=== PATIENT | male | born 1970 | race Caucasian/White ===

== ENCOUNTER 2017-04-12 22:46 | Emergency (ER) | payer BC ==
[2017-04-12] MEDS ORDERED: PROPARACAINE 0.5% OPHTH DROPS 15 ML BTL RIGHT EYE STA (23:27)
[2017-04-12] MEDS ORDERED: BACITRACIN/POLYMYX 500-10,000 UNIT/GM OPHTH OINT 3.5 GM TUBE RIGHT EYE STA (23:44)
--- NOTE | 2017-04-12 23:44 | ED ---
Eye Problem HPI - General Chief complaint: Eye Problems Stated complaint: FB R eye Time Seen by Provider: 04/12/17 22:58 Source: patient Mode of arrival: ambulatory Limitations: no limitations - History of Present Illness Initial comments: Is a 46-year-old man who presents to be viral for what he believes is formed body in the eye. The patient states that he had been using a barbecue grill tonight and he heard a charcoal pop and then felt some burning discomfort in his right eye. He states that both he and his had attempted to irrigate this foreign body out but were not successful. Patient states that his vision appears okay and he has had a little bit of tearing and a little bit of discomfort. Patient denies any other symptoms he does believe that his last tetanus shot was within the past 10 years. chief complaint: eye pain -: hour(s) Onset Description: sudden Location: right eye Place: home If Injury: other Eye Symptoms: burning Severity: mild If Pain, Quality: burning Consistency: constant Associated Symptoms: none Treatments Prior to Arrival: none - Related Data Patient Tetanus UTD: Yes Allergies Allergy/AdvReac Type Severity Reaction Status Date / Time No Known Allergies Allergy Verified 04/12/17 22:56 Review of Systems ROS Statement: Those systems with pertinent positive or pertinent negative responses have been documented in the HPI. ROS Other: All systems not noted in ROS Statement are negative. Constitutional: Denies: fever Eyes: Reports: as per HPI, eye pain, eye discharge. Denies: vision change Neurological: Denies: headache Past Medical History Past Medical History: Hyperlipidemia History of Any Multi-Drug Resistant Organisms: None Reported Past Surgical History: No Surgical Hx Reported Past Psychological History: Depression Smoking Status: Never smoker Past Alcohol Use History: Occasional Past Drug Use History: None Reported General Exam Limitations: no limitations General appearance: alert, in no apparent distress Head exam: Present: atraumatic, normocephalic Eye exam: Present: PERRL, EOMI. Absent: scleral icterus, conjunctival injection , periorbital swelling, periorbital tenderness Pupils: Present: other (Patient has what appears to be a carbonaceous foreign body at about the 1:30 position of the right cornea.) Course Vital Signs 04/12/17 22:56 Temperature 98.1 F Pulse Rate 75 Respiratory 18 Rate Blood Pressure 122/76 O2 Sat by Pulse 94 L Oximetry Medical Decision Making - Medical Decision Making I instilled prep can drop. When there was adequate anesthesia. I perform slit lamp exam. Lids have a normal appearance. There is no conjunctival injection. Cornea is thin and clear. There is the corneal foreign body documented previously. Anterior chamber shows no cells or flare. Under slit lamp guidance a used a #18-gauge needle that I had bent into a scoop shape to remove the small carbonaceous foreign body. Patient tolerated this well without any complication. Exam following removal shows no rust ring. No remaining foreign body. Just appropriate further care and follow-up. Disposition Clinical Impression: Corneal foreign body Disposition: HOME SELF-CARE Condition: Good Instructions: Eye Foreign Body (ED) Referrals: Amberly Gamble MD [Primary Care Provider] - 1-2 days Kt Noguera MD [STAFF PHYSICIAN] - 1-2 days
[2017-04-12 23:57] VITALS: BP 122/73; PULSE 62; RESP 16; TEMP 98
== END 2017-04-13 00:07 | disposition home or self-care (01) ==
LOC: EC 22:46
DX: T15.01XA Foreign body in cornea, right eye, initial encounter (principal)
CPT/HCPCS: 65222; 99283

== ENCOUNTER → 2020-08-30 | Outpatient (CLI) | payer BC ==
[2020-08-30 21:19] LABS: African American GFR (CKD) 91.5 (60.0-200.0); Albumin 4.3 g/dL (3.80-4.90); Albumin/Globulin Ratio 1.95 (1.60-3.17); BUN/Creat Ratio 16.36 Ratio (12.00-20.00); Calcium 9.8 mg/dL (8.7-10.3); Chol/HDL Ratio 4.16; Globulin 2.2 g/dL (1.6-3.3); LDL Cholesterol,Calculated 66.2 mg/dL (0.0-131.0); Potassium 4.5 mmol/L (3.5-5.5); Total Bilirubin 0.6 mg/dL (0.2-1.2); Total Protein 6.5 g/dL (6.2-8.2); VLDL Calculation 31.8 mg/dL (5.00-40.00)
== END | disposition home or self-care (01) ==
LOC: LABWHC1 12:55
PROVIDERS: ATTEND Internal Medicine Interventional Cardiology
DX: E78.2 Mixed hyperlipidemia (principal)
CPT/HCPCS: 36415; 80053; 80061

== ENCOUNTER → 2020-09-25 | Outpatient (CLI) | payer BC ==
[2020-09-25 15:45] LABS: African American GFR (CKD) 81.8 (60.0-200.0); Anion Gap 8.2 mmol/L (4.00-12.00); Carbon Dioxide 26.8 mmol/L (21.6-31.8); Non-African American GFR(CKD) 70.6 (60.0-200.0); Potassium 4.5 mmol/L (3.5-5.5)
== END | disposition home or self-care (01) ==
LOC: LABWHC1 09:46
PROVIDERS: ATTEND Internal Medicine Interventional Cardiology
DX: I10 Essential (primary) hypertension (principal)
CPT/HCPCS: 36415; 80051; 82565; 84520

== ENCOUNTER → 2023-02-14 | Outpatient (CLI) | payer BC ==
[2023-02-14 19:25] LABS: ALT 32 U/L (10-49); AST 27 U/L (14-35); African American GFR (CKD) 89.6 (60.0-200.0); Albumin 4.7 g/dL (3.8-4.9); Albumin/Globulin Ratio 2.14 (1.60-3.17); Alkaline Phosphatase 58 U/L (41-126); BUN/Creat Ratio 16.55 Ratio (12.00-20.00); Blood Urea Nitrogen 18.2 mg/dL (9.0-27.0); Calcium 10.4 mg/dL (8.7-10.3); Carbon Dioxide 26.8 mmol/L (20.0-27.5); Chloride 104 mmol/L (96-109); Chol/HDL Ratio 6.03 Ratio; Globulin 2.2 g/dL (1.6-3.3); Glucose 105 mg/dL (70-110); LDL Cholesterol,Calculated 173.4 mg/dL (0.0-131.0); Magnesium 2.1 mg/dL (1.5-2.4); Non-African American GFR(CKD) 77.3 (60.0-200.0); Potassium 5.4 mmol/L (3.5-5.5); Sodium 142 mmol/L (135-145); Total Protein 6.9 g/dL (6.2-8.2)
[2023-02-14 20:17] LABS: Appearance,Urine Clear (Clear); Bilirubin,Urine Negative (Negative); Blood,Urine Negative (Negative); Color,Urine Yellow (Yellow); Ketones,Urine Negative (Negative); Nitrite,Urine Negative (Negative); PH, Urine 6.5 (5.0-8.0); Specific Gravity,Urine 1.022 (1.001-1.030); Urobilinogen,Urine 0.2 (0.2,1.0)
[2023-02-14 20:32] LABS: Basophils # (A) 0.09 X 10*3/uL (0.00-0.10); Eosinophils # (A) 0.07 X 10*3/uL (0.04-0.35); Eosinophils % (A) 0.8 %; HCT 50.3 % (39.6-50.0); HGB 15.8 g/dL (13.0-17.0); Immature Grans, Automated 0.3 %; Lymphocytes # (A) 2.29 X 10*3/uL (0.90-5.00); Lymphocytes % (A) 25.9 %; MCH 27.1 pg (27.0-32.0); MCHC 31.4 g/dL (32.0-37.0); MCV 86.1 fL (80.0-97.0); Mean Platelet Volume 11.3 fL (9.5-12.2); Monocytes % (A) 6.8 %; NRBC Per 100 WBC 0 /100 WBCS (0.0-0.0); Neutrophils # (A) 5.76 X 10*3/uL (1.80-7.70); Neutrophils % (A) 65.2 %; Platelet Count 305 X 10*3/uL (140-440); RBC 5.84 X 10*6/uL (4.40-5.60); RDW 13.2 % (11.5-14.5); WBC 8.84 X 10*3/uL (4.50-10.00)
== END | disposition home or self-care (01) ==
LOC: LABWHC1 09:42
PROVIDERS: ATTEND Internal Medicine
DX: Z00.00 Encounter for general adult medical examination without abnormal findings (principal); I10 Essential (primary) hypertension; E78.2 Mixed hyperlipidemia; N40.0 Benign prostatic hyperplasia without lower urinary tract symptoms
CPT/HCPCS: 36415; 80053; 80061; 81003; 83036; 83735; 84153; 84439; 84443; 85025

== ENCOUNTER 2024-03-02 16:20 | Inpatient (IN) | payer BC ==
[2024-03-02] MEDS: SODIUM CHLORIDE 0.9% 1,000 ML IV STA (16:59)
[2024-03-02 17:08] LABS: Basophils # (A) 0.1 k/uL (0-0.2); Basophils % (A) 1 %; Eosinophils # (A) 0.1 k/uL (0-0.7); Eosinophils % (A) 1 %; HGB 15.3 gm/dL (13.0-17.5); Lymphocytes # (A) 2.2 k/uL (1.0-4.8); Lymphocytes % (A) 22 %; MCH 28.3 pg (25.0-35.0); MCHC 33.3 g/dL (31.0-37.0); MCV 84.8 fL (80.0-100.0); Mean Platelet Volume 8.4; Monocytes # (A) 0.7 k/uL (0-1.0); Monocytes % (A) 7 %; Neutrophils # (A) 6.7 k/uL (1.3-7.7); Neutrophils % (A) 68 %; Platelet Count 251 k/uL (150-450); RBC 5.43 m/uL (4.30-5.90); WBC 9.9 k/uL (3.8-10.6)
--- NOTE | 2024-03-02 17:14 | ED ---
General Adult HPI - General Chief complaint: Neuro Symptoms/Deficit Stated complaint: confusion Time Seen by Provider: 03/02/24 16:28 Source: patient, RN notes reviewed, old records reviewed Mode of arrival: ambulatory Limitations: no limitations - History of Present Illness Initial comments: 54-year-old male presenting with an episode of confusion and amnesia. This occurred approximately 1 hour prior to arrival and history of the event is obtained from the . Patient denies current complaint. Denies headache. Denies focal numbness or weakness. Denies chest pain. Patient is otherwise quite healthy. He had been working outside, which she describes as light work. He came inside and had sexual intercourse this was followed by the episode of confusion and amnesia. He had repetitive questioning and was unable to recall basic information including his address over the year. Patient does not remember the event but has returned to baseline otherwise. - Related Data Home Medications Medication Instructions Recorded Confirmed Atorvastatin [Lipitor] 40 mg PO HS 03/02/24 03/02/24 Cholecalciferol [Vitamin D3 (125 125 mcg PO DAILY 03/02/24 03/02/24 Mcg = 5000 Iu)] Glucosam/Ander-Msm1/C/Keith/Bosw 1 tab PO DAILY 03/02/24 03/02/24 [Glucosamine-Chondroitin Tablet] Multivitamins, Thera [Multivitamin 1 tab PO DAILY 03/02/24 03/02/24 (formulary)] [place]-3/Dha/Epa/Fish Oil [[place]-3 1 cap PO DAILY 03/02/24 03/02/24 Fish Oil 1,000 mg Sfgl] Quercetin 500 mg PO DAILY 03/02/24 03/02/24 Sertraline [Zoloft] 200 mg PO HS 03/02/24 03/02/24 Turmeric Root Extract [Turmeric] 500 mg PO DAILY 03/02/24 03/02/24 Ubidecarenone [Coenzyme Q10] 200 mg PO DAILY 03/02/24 03/02/24 Vitamin B Complex 1 cap PO DAILY 03/02/24 03/02/24 buPROPion XL [Wellbutrin XL] 300 mg PO DAILY 03/02/24 03/02/24 modafiniL [Provigil] 100 mg PO DAILY PRN 03/02/24 03/02/24 Allergies Allergy/AdvReac Type Severity Reaction Status Date / Time No Known Allergies Allergy Verified 03/02/24 16:41 Review of Systems ROS Statement: Those systems with pertinent positive or pertinent negative responses have been documented in the HPI. ROS Other: All systems not noted in ROS Statement are negative. Past Medical History Past Medical History: Hyperlipidemia History of Any Multi-Drug Resistant Organisms: None Reported Past Surgical History: No Surgical Hx Reported Past Psychological History: Depression Past Alcohol Use History: Occasional Past Drug Use History: None Reported General Exam Limitations: no limitations General appearance: alert, in no apparent distress Head exam: Present: atraumatic, normocephalic Eye exam: Present: normal appearance, PERRL Neck exam: Present: normal inspection. Absent: tenderness, meningismus Respiratory exam: Present: normal lung sounds bilaterally. Absent: respiratory distress, wheezes Cardiovascular Exam: Present: regular rate, normal rhythm GI/Abdominal exam: Present: soft. Absent: distended, tenderness, guarding Extremities exam: Present: normal inspection Neurological exam: Present: alert, oriented X3, CN II-XII intact, other (No ataxia, NIH is 0). Absent: motor sensory deficit Psychiatric exam: Present: normal affect, normal mood Skin exam: Present: warm, dry, intact. Absent: cyanosis, diaphoretic Course Vital Signs 03/02/24 03/02/24 03/02/24 16:24 16:44 17:00 Temperature 98.3 F Pulse Rate 82 79 75 Respiratory 16 18 18 Rate Blood Pressure 136/87 122/92 113/86 O2 Sat by Pulse 95 94 L 94 L Oximetry 03/02/24 03/02/24 03/02/24 17:15 17:30 17:45 Temperature Pulse Rate 78 67 77 Respiratory 18 18 18 Rate Blood Pressure 119/80 O2 Sat by Pulse 95 94 L 98 Oximetry 03/02/24 03/02/24 18:00 18:10 Temperature Pulse Rate 70 73 Respiratory 18 18 Rate Blood Pressure O2 Sat by Pulse 96 98 Oximetry Medical Decision Making - Medical Decision Making Was pt. sent in by a medical professional or institution (, PA, EMERGENCY ROOM NURSE, urgent care, hospital, or intermediate...) When possible be specific @ -No Did you speak to anyone other than the patient for history (EMS, parent, family, police, friend...)? What history was obtained from this source @ -No Did you review nursing and triage notes (agree or disagree)? Why? @ -I reviewed and agree with nursing and triage notes Were old charts reviewed (outside hosp., previous admission, EMS record, old EKG, old radiological studies, urgent care reports/EKG's, intermediate records)? Report findings @ -No old charts were reviewed Differential Diagnosis (chest pain, altered mental status, abdominal pain women, abdominal pain men, vaginal bleeding, weakness, fever, dyspnea, syncope, headache, dizziness, GI bleed, back pain, seizure, CVA, palpatations, mental health, musculoskeletal)? @ -Not applicable EKG interpreted by me (3pts min.). @EKG: Sinus rhythm, rate of 73, AR interval 180, QRS duration 114, QTc 01/27/[address] segment elevation. Q waves in lead III. X-rays interpreted by me (1pt min.). @ -None done CT interpreted by me (1pt min.). @CT brain negative for intracranial hemorrhage or mass effect, CT angiography negative for occlusion or stenosis, no aneurysmal change. U/S interpreted by me (1pt. min.). @ -None done What testing was considered but not performed or refused? (CT, X-rays, U/S, labs)? Why? @ -None What meds were considered but not given or refused? Why? @ -None Did you discuss the management of the patient with other professionals (professionals i.e. , PA, EMERGENCY ROOM NURSE, lab, RT, psych nurse, forensic social worker, retail beauty specialist, teacher, surface to air weapons officer, case management coordinator)? Give summary @ -Discussed with Dr. Gilberto medrano for neurology and Dr. Gamble who will admit Was smoking cessation discussed for >3mins.? @ -No Was critical care preformed (if so, how long)? @ -No Were there social determinants of health that impacted care today? How? (Homelessness, low income, unemployed, alcoholism, drug addiction, transportat ion, low edu. Level, literacy, decrease access to med. care, fpc, rehab)? @ -No Was there de-escalation of care discussed even if they declined (Discuss DNR or withdrawal of care, Hospice)? DNR status @ -No What co-morbidities impacted this encounter? (DM, HTN, Smoking, COPD, CAD, Cancer, CVA, ARF, Chemo, Hep., AIDS, mental health diagnosis, sleep apnea, morbid obesity)? @ -None Was patient admitted / discharged? Hospital course, mention meds given and route, prescriptions, significant lab abnormalities, going to OR and other pertinent info. @54-year-old male with no chronic medical conditions presenting with an episode of confusion and amnesia. Symptoms currently resolved without focal neurological findings, normal vital signs. CT CT angiography is unremarkable. Laboratory testing without acute abnormality. Patient will be admitted with neurology on consult, MRI has been ordered. Undiagnosed new problem with uncertain prognosis? @ -No Drug Therapy requiring intensive monitoring for toxicity (Heparin, Nitro, Insulin, Cardizem)? @ -No Were any procedures done? @ -No Diagnosis/symptom? @ -Confusion, amnesia Acute, or Chronic, or Acute on Chronic? @Acute Uncomplicated (without systemic symptoms) or Complicated (systemic symptoms)? @ -Default Side effects of treatment? @ -No Exacerbation, Progression, or Severe Exacerbation? @ -No Poses a threat to life or bodily function? How? (Chest pain, [place], AL, pneumonia, PE, COPD, DKA, ARF, appy, cholecystitis, CVA, Diverticulitis, Homicidal, Suicidal, threat to staff... and all critical care pts) @ -Yes, CVA, seizure - Lab Data Result diagrams: 03/02/24 16:57 03/02/24 16:57 Lab Results 03/02/24 03/02/24 03/02/24 Range/Units 16:57 16:57 16:57 WBC 9.9 (3.8-10.6) k/uL RBC 5.43 (4.30-5.90) m/uL Hgb 15.3 (13.0-17.5) gm/dL Hct 46.0 (39.0-53.0) % MCV 84.8 (80.0-100.0) fL MCH 28.3 (25.0-35.0) pg MCHC 33.3 (31.0-37.0) g/dL RDW 13.0 (11.5-15.5) % Plt Count 251 (150-450) k/uL MPV 8.4 Neutrophils % 68 % Lymphocytes % 22 % Monocytes % 7 % Eosinophils % 1 % Basophils % 1 % Neutrophils # 6.7 (1.3-7.7) k/uL Lymphocytes # 2.2 (1.0-4.8) k/uL Monocytes # 0.7 (0-1.0) k/uL Eosinophils # 0.1 (0-0.7) k/uL Basophils # 0.1 (0-0.2) k/uL PT 9.9 L (10.0-12.5) sec INR 0.9 (<1.2) APTT 24.1 (22.0-30.0) sec Sodium 137 (137-145) mmol/L Potassium 4.4 (3.5-5.1) mmol/L Chloride 110 H (98-107) mmol/L Carbon Dioxide 20 L (22-30) mmol/L Anion Gap 7 mmol/L BUN 20 (9-20) mg/dL Creatinine 1.01 (0.66-1.25) mg/dL Est GFR (CKD-EPI)AfAm >90 (>60 ml/min/1.73 sqM) Est GFR (CKD-EPI)NonAf 85 (>60 ml/min/1.73 sqM) Glucose 96 (74-99) mg/dL Calcium 9.6 (8.4-10.2) mg/dL Total Bilirubin 0.3 (0.2-1.3) mg/dL AST 33 (17-59) U/L ALT 36 (4-49) U/L Alkaline Phosphatase 54 (38-126) U/L Creatine Kinase 227 H (55-170) U/L Troponin I (0.000-0.034) ng/mL Total Protein 6.7 (6.3-8.2) g/dL Albumin 4.2 (3.5-5.0) g/dL 03/02/24 Range/Units 16:57 WBC (3.8-10.6) k/uL RBC (4.30-5.90) m/uL Hgb (13.0-17.5) gm/dL Hct (39.0-53.0) % MCV (80.0-100.0) fL MCH (25.0-35.0) pg MCHC (31.0-37.0) g/dL RDW (11.5-15.5) % Plt Count (150-450) k/uL MPV Neutrophils % % Lymphocytes % % Monocytes % % Eosinophils % % Basophils % % Neutrophils # (1.3-7.7) k/uL Lymphocytes # (1.0-4.8) k/uL Monocytes # (0-1.0) k/uL Eosinophils # (0-0.7) k/uL Basophils # (0-0.2) k/uL PT (10.0-12.5) sec INR (<1.2) APTT (22.0-30.0) sec Sodium (137-145) mmol/L Potassium (3.5-5.1) mmol/L Chloride (98-107) mmol/L Carbon Dioxide (22-30) mmol/L Anion Gap mmol/L BUN (9-20) mg/dL Creatinine (0.66-1.25) mg/dL Est GFR (CKD-EPI)AfAm (>60 ml/min/1.73 sqM) Est GFR (CKD-EPI)NonAf (>60 ml/min/1.73 sqM) Glucose (74-99) mg/dL Calcium (8.4-10.2) mg/dL Total Bilirubin (0.2-1.3) mg/dL AST (17-59) U/L ALT (4-49) U/L Alkaline Phosphatase (38-126) U/L Creatine Kinase (55-170) U/L Troponin I <0.012 (0.000-0.034) ng/mL Total Protein (6.3-8.2) g/dL Albumin (3.5-5.0) g/dL Disposition Clinical Impression: Altered mental status, Amnesia Disposition: ADMITTED IP TO THIS HOSP Condition: Stable Is patient prescribed a controlled substance at d/c from ED?: No Referrals: Amberly Gamble MD [Primary Care Provider] - 1-2 days Time of Disposition: 18:53
[2024-03-02 17:21] LABS: INR 0.9 (<1.2); Partial Thromboplastin Time 24.1 sec (22.0-30.0); Prothrombin Time 9.9 sec (10.0-12.5)
[2024-03-02 17:24] LABS: ALT 36 U/L (4-49); AST 33 U/L (17-59); African American GFR (CKD) >90 (>60 ml/min/1.73 sqM); Albumin 4.2 g/dL (3.5-5.0); Alkaline Phosphatase 54 U/L (38-126); Anion Gap 7 mmol/L; Blood Urea Nitrogen 20 mg/dL (9-20); Calcium 9.6 mg/dL (8.4-10.2); Carbon Dioxide 20 mmol/L (22-30); Chloride 110 mmol/L (98-107); Creatine Kinase 227 U/L (55-170); Glucose 96 mg/dL (74-99); Non-African American GFR(CKD) 85 (>60 ml/min/1.73 sqM); Potassium 4.4 mmol/L (3.5-5.1); Sodium 137 mmol/L (137-145); Total Bilirubin 0.3 mg/dL (0.2-1.3); Total Protein 6.7 g/dL (6.3-8.2)
--- NOTE | 2024-03-02 18:00 | CT ---
EXAMINATION TYPE: CT brain wo con CT DLP: 1242.7 mGycm, Automated exposure control for dose reduction was used. DATE OF EXAM: 03/02/2024 5:34 PM COMPARISON: None. CLINICAL INDICATION:Male, 53 years old with history of Neuro deficit, acute, stroke suspected, confus ion TECHNIQUE: Brain: Axial CT images of the brain were obtained with coronal and sagittal reformats created and rev iewed. Contrast used: None. Oral contrast used: None. FINDINGS: Brain: Extra-axial spaces: No abnormal extra-axial fluid collections. Ventricular system: Within normal limits Cerebral parenchyma: No acute intraparenchymal hemorrhage or mass effect. The duran-white junction is well differentiated. Cerebellum: Unremarkable. Mass effect: No evidence of midline shift. Intracranial vasculature: unremarkable Soft tissues: Normal. Calvarium/osseous structures: No depressed skull fracture. Paranasal sinuses and mastoid air cells: Mild scattered paranasal sinus disease. Visualized orbits: Orbital contents are intact. IMPRESSION: No acute intracranial process.
--- NOTE | 2024-03-02 18:10 | CT ---
EXAMINATION TYPE: CT angio head neck CT DLP: 1021.8 mGycm, Automated exposure control for dose reduction was used. DATE OF EXAM: 03/02/2024 5:46 PM COMPARISON: CT head same day.. CLINICAL INDICATION:Male, 53 years old with history of Neuro deficit, acute, stroke suspected; PHH, c onfusion. TECHNIQUE: Axially acquired helical CT angiogram of the head and neck was obtained with contrast. Axi al images are supplemented with 3D reconstructions and MIP images which were post-processed at an in dependent workstation. NASCET criteria used. Contrast used:65ml mL of Isovue 370 with IV Contrast, Oral contrast used: None. FINDINGS: CTA HEAD: No evidence of acute intracranial hemorrhage, mass effect, or midline shift. The ventricles, sulci, a nd cisterns are unremarkable. The visualized portions of the internal carotid arteries, middle cerebral arteries, anterior cerebral arteries, and posterior cerebral arteries are patent. The basilar and vertebral arteries are patent. CTA NECK: Right Carotid System: The common carotid artery and external carotid artery are patent. The carotid bifurcation demonstrate s no evidence of hemodynamically significant stenosis. The remaining portions of the internal carotid artery demonstrate normal size without significant narrowing. Left Carotid System: The common carotid artery and external carotid artery are patent. The carotid bifurcation demonstrate s no evidence of hemodynamically significant stenosis. The remaining portions of the internal carotid artery demonstrate normal size without significant narrowing. Vertebral arteries are patent without evidence hemodynamically significant stenosis. There is a three-vessel aortic arch. The origins of the great vessels are patent. No evidence of hemo dynamically significant stenosis. IMPRESSION: 1. No evidence of dissection of the cervical internal carotid arteries or vertebral arteries or any e vidence of significant stenosis at the carotid bifurcations. 2. No evidence of intracranial high-grade stenosis or intracranial aneurysm.
[2024-03-02] MEDS: ASPIRIN 325 MG TAB PO STA (18:35)
[2024-03-02] MEDS ORDERED: modafiniL 100 MG TAB PO PRN (19:36)
[2024-03-02] MEDS: SERTRALINE 100 MG TAB PO SCH (20:47)
[2024-03-02] MEDS: ATORVASTATIN 40 MG TAB PO SCH (20:47)
[2024-03-03] MEDS: ASPIRIN 325 MG TAB PO SCH (08:18)
[2024-03-03] MEDS: MULTIVITAMINS, THERA 1 EACH TAB PO SCH (08:18)
[2024-03-03] MEDS: CHOLECALCIFEROL 125 MCG (5000 IU) TABLET PO SCH (08:19)
[2024-03-03] MEDS: ENOXAPARIN 40 MG/0.4 ML SYRINGE SQ SCH (08:19)
[2024-03-03] MEDS: buPROPion XL 150 MG TAB.ER.24H PO SCH (08:19)
[2024-03-03] MEDS ORDERED: NON FORMULARY DRUG (Omega-3/Dha/Epa/Fish Oil [Omega-3 Fish Oil 1,000 Mg Sfgl] 1 EACH Capsu PO SCH (09:00)
[2024-03-03] MEDS ORDERED: NON FORMULARY DRUG (Turmeric Root Extract [Turmeric] 500 MG Tablet) PO SCH (09:00)
[2024-03-03] MEDS ORDERED: NON FORMULARY DRUG (Ubidecarenone [Coenzyme Q10] 200 MG Capsule) PO SCH (09:00)
[2024-03-03] MEDS ORDERED: NON FORMULARY DRUG (Glucosam/Chon-Msm1/C/Mang/Bosw [Glucosamine-Chondroitin Tablet] 1 EACH PO SCH (09:00)
[2024-03-03] MEDS ORDERED: NON FORMULARY DRUG (Vitamin B Complex [Vitamin B Complex] 1 EACH Capsule) PO SCH (09:00)
[2024-03-03] MEDS ORDERED: NON FORMULARY DRUG (Quercetin [Quercetin] 500 MG Capsule) PO SCH (09:00)
[2024-03-03 09:49] LABS: Basophils # (A) 0.1 k/uL (0-0.2); Basophils % (A) 1 %; Eosinophils # (A) 0.1 k/uL (0-0.7); Eosinophils % (A) 1 %; Lymphocytes # (A) 2.4 k/uL (1.0-4.8); Lymphocytes % (A) 32 %; MCH 29.1 pg (25.0-35.0); MCHC 34.1 g/dL (31.0-37.0); MCV 85.2 fL (80.0-100.0); Mean Platelet Volume 9.1; Monocytes # (A) 0.5 k/uL (0-1.0); Monocytes % (A) 6 %; Neutrophils # (A) 4.3 k/uL (1.3-7.7); Neutrophils % (A) 57 %; Platelet Count 232 k/uL (150-450); RBC 5.17 m/uL (4.30-5.90); RDW 13.4 % (11.5-15.5); WBC 7.4 k/uL (3.8-10.6)
[2024-03-03 09:50] LABS: ALT 33 U/L (4-49); AST 32 U/L (17-59); African American GFR (CKD) >90 (>60 ml/min/1.73 sqM); Albumin 3.8 g/dL (3.5-5.0); Albumin/Globulin Ratio 1.5; Alkaline Phosphatase 50 U/L (38-126); Anion Gap 6 mmol/L; Blood Urea Nitrogen 17 mg/dL (9-20); Calcium 9.4 mg/dL (8.4-10.2); Carbon Dioxide 24 mmol/L (22-30); Chloride 109 mmol/L (98-107); Globulin 2.6 g/dL; Glucose 140 mg/dL (74-99); Non-African American GFR(CKD) >90 (>60 ml/min/1.73 sqM); Potassium 4.2 mmol/L (3.5-5.1); Sodium 139 mmol/L (137-145); Total Bilirubin 0.5 mg/dL (0.2-1.3); Total Protein 6.4 g/dL (6.3-8.2)
--- NOTE | 2024-03-03 13:09 | P.CNNES ---
History of Present Illness Consult date: 03/03/24 Requesting physician: Ahmet Cintron Reason for Consult: confusion, amnesia History of Present Illness: This is a 53-year-old gentleman who presents emergency department because of episode of confusion. The patient yesterday in the afternoon around 3:00 he faded out does not recall what transpired for short period of time. It seems that he was repeating himself and not making sense that he was notified by the w dulce but did not have any loss of consciousness. Denies being told that he was jerking of any extremities, tongue bite, urinary or bowel incontinence. He denies of any headache, focal weakness, numbness, visual disturbance. Per the ED note the notified the ED physician that patient was working outside and outside work was light work that he came inside he had sexual intercourse then followed by episode of confusion and amnesia and he had repetitive questioning and was unable to recall basic information including address or the year. Patient did acknowledge that he had difficulty answering basic questions. Patient does not still recall what transpired for the brief amount of time yes terday at 3 PM. He denies any recent fevers or sick contacts. He denies any similar episode like this in the past. Denies any history of stroke or seizures. He states that his father had "[place] seizures" in his [id number]. Patient denies any tobacco use. He socially drinks alcohol. Den ies any illicit drug use. Is not on any new medication. He has history of hypercholesteremia and depression and for his depression is on Wellbutrin for 5 years. Some other workup during this hospital visit consisted of: Is afebrile. Presentation blood pressure is 136/87. CBC with differential is unremarkable Chemistry panel is sodium is 137, calcium 9.6, serum glucose 96, ammonia level is less than 9 BUN and creatinine is within normal limits CT of the head is reported as no acute intracranial process. Personally reviewed the CT and agree with the report Review of Systems The positive and negative as per HPI. Past Medical History Past Medical History: Hyperlipidemia History of Any Multi-Drug Resistant Organisms: None Reported Past Surgical History: No Surgical Hx Reported Past Psychological History: Depression Past Alcohol Use History: Occasional Past Drug Use History: None Reported Medications and Allergies Home Medications Medication Instructions Recorded Confirmed Type Atorvastatin [Lipitor] 40 mg PO HS 03/02/24 03/02/24 History Cholecalciferol [Vitamin D3 (125 125 mcg PO DAILY 03/02/24 03/02/24 History Mcg = 5000 Iu)] Glucosam/Ander-Msm1/C/Keith/Bosw 1 tab PO DAILY 03/02/24 03/02/24 History [Glucosamine-Chondroitin Tablet] Multivitamins, Thera [Multivitamin 1 tab PO DAILY 03/02/24 03/02/24 History (formulary)] [place]-3/Dha/Epa/Fish Oil [[place]-3 1 cap PO DAILY 03/02/24 03/02/24 History Fish Oil 1,000 mg Sfgl] Quercetin 500 mg PO DAILY 03/02/24 03/02/24 History Sertraline [Zoloft] 200 mg PO HS 03/02/24 03/02/24 History Turmeric Root Extract [Turmeric] 500 mg PO DAILY 03/02/24 03/02/24 History Ubidecarenone [Coenzyme Q10] 200 mg PO DAILY 03/02/24 03/02/24 History Vitamin B Complex 1 cap PO DAILY 03/02/24 03/02/24 History buPROPion XL [Wellbutrin XL] 300 mg PO DAILY 03/02/24 03/02/24 History modafiniL [Provigil] 100 mg PO DAILY PRN 03/02/24 03/02/24 History Allergies Allergy/AdvReac Type Severity Reaction Status Date / Time No Known Allergies Allergy Verified 03/02/24 16:41 Physical Examination - Vital Signs Vital Signs: Vital Signs Temp Pulse Resp BP Pulse Ox 03/03/24 10:48 76 18 120/70 95 03/03/24 08:19 68 18 111/89 96 03/03/24 06:18 59 L 18 113/79 97 03/03/24 03:00 68 18 110/84 94 L 03/02/24 23:00 70 18 108/62 93 L 03/02/24 20:44 72 18 114/76 95 03/02/24 18:10 73 18 98 03/02/24 18:00 70 18 96 03/02/24 17:45 77 18 98 03/02/24 17:30 67 18 119/80 94 L 03/02/24 17:15 78 18 95 03/02/24 17:00 75 18 113/86 94 L 03/02/24 16:44 79 18 122/92 94 L 03/02/24 16:24 98.3 F 82 16 136/87 95 Intake and Output 03/02/24 03/03/24 03/03/24 22:59 06:59 14:59 Other: Weight 95.254 kg GENERAL: The patient is lying in bed and is not in acute distress. NEUROLOGICAL: Higher mental function: The patient is awake, alert, oriented to self, place and time. Patient is following commands. No aphasia and no neglect. Cranial nerves: The pupils are round, equal and reactive to light and accommodation. Visual estevez are full to confrontation throughout. Extraocular movement is intact no nystagmus is noted. Facial sensation is normal to touch throughout. The facial strength is normal throughout. Hearing is normal bilaterally to hand rub. Tongue is midline and moved [id number] without any difficulty. No dysarthria is noted. Shoulder shrug is normal bilaterally. Motor: The strength is 5 over 5 throughout. Normal tone and bulk. Cerebellum: Normal finger to nose heel to simpson bilaterally. Sensation: Sensation is normal to touch throughout. Reflexes (right/left): 2+ Plantars are downgoing bilaterally. Results - Laboratory Findings CBC and BMP: 03/03/24 08:48 03/03/24 08:48 Abnormal Lab Findings: Abnormal Labs 03/02/24 03/02/24 03/03/24 16:57 16:57 08:48 PT 9.9 L Chloride 110 H 109 H Carbon Dioxide 20 L Glucose 140 H Creatine Kinase 227 H Assessment and Plan Assessment: This is a 53-year-old gentleman who presented because of episode of confusion the patient was repeating himself yesterday to his and unable to respond to simple question. He denies any focal weakness, numbness visual disturbance headache. Patient states his father had a history of focal seizure and 50s years old Episode of confusion with repeating himself/transient global amnesia: Unsure exact etiology. Unsure if patient had a focal seizure especially with a family history of seizure. So far CT head and CT angiography were unremarkable. Hypercholesteremia Depression Plan: MRI of the brain is ordered and is pending I ordered a routine EEG and the preliminary is normal Vitamin B12, TALI, ESR, folate, homocystine, lipid panel are ordered by the primary team is pending If it is a seizure then his Wellbutrin can lower seizure threshold. If possible to modify the medication to something else and will defer that to his primary team versus following up with a psychiatrist as an outpatient and addressing steph t Consider repeat EEG as an outpatient versus long-term EEG. I notified the patient if he does not have an underlying seizure then per the [place] law to avoid driving for 6-month until seizure-free, avoid heights, avoid swimming unassisted or using heavy machinery. At this time it is not confirmed that he had a seizure but I recommend that he follows up with a neurologist as an outpatient for further evaluation within 1 to 2 weeks. Defer the rest of the medical management to primary team The plan discussed with the patient. Thank for the consultation Time with Patient: Greater than 30
--- NOTE | 2024-03-03 14:31 | EEG ---
ELECTROENCEPHALOGRAM REPORT CLINICAL HISTORY: This is a 53-year-old gentleman with episode of confusion. The video EEG is obtained to evaluate for seizure epileptiform activity. RELEVANT MEDICATION: Wellbutrin. EEG TYPE: A routine 21-channel EEG with video using the 10/20 electrode placement system. DESCRIPTION: Wakefulness is only obtained. During awake state, the posterior-dominant rhythm consists of [id number] voltage of 10-11 hertz activity that is well modulated, well sustained. There is no physiological stage 2 sleep architecture. There is no focal slowing. Interictal and ictal is none. ACTIVATION PROCEDURE: Photic stimulation did not evoke a posterior driving response. There is no abnormality during the photic stimulation. Hyperventilation is not performed. CLINICAL INTERPRETATION: This is a normal routine EEG. There is no focal slowing, epileptiform discharge, or seizure on the EEG. A normal routine EEG does not rule underlying epilepsy. Clinical correlation is recommended. USHA / YEVGENIYN: [id number] /
--- NOTE | 2024-03-03 14:37 | P.HPIM ---
History of Present Illness H&P Date: 03/02/24 Chief Complaint: Transient global amnesia HISTORY OF PRESENT ILLNESS: This is a 53-year-old male with a previous medical history significant for mixed hyperlipidemia, major depressive disorder, otherwise healthy has been doing fine patient presented to the emergency department at [facility] yesterday after he developed to have a significant amnestic episode that lasted about 10 to 15 minutes after he was having sex with his , patient denies taking any medication prior to intercourse, patient denies any headache at that time, he denies any blurred vision double vision, he denies any palpitation, he denies any syncopal episode, he denies any numbness in the upper or lower extremities, but his noted that the patient is not himself, she ended up driving the patient to the ER for evaluation, he had a CT scan of the brain followed by CT angiography of the neck and the brain that was negative, patient was started on aspirin 325 mg orally once every day he was admitted to the hospital for further evaluation, MRI of the brain with and without gadolinium was obtained neurology consultation was obtained as well. REVIEW OF SYSTEMS: Constitutional: No documented fever, no chills, no night sweats. No weight change. No weakness, fatigue or lethargy. No daytime sleepiness. EENT: No headache. No blurred vision or double vision, no loss of vision. No loss of Hearing, no ringing in the ears, no dizziness. No nasal drainage or congestion. No epistaxis. No sore throat. Lungs: No shortness of breath, no cough, no sputum production. No wheezing. Reports dyspnea with activity. Cardiovascular: No chest pain, no lower extremity edema. No palpitations. No paroxysmal nocturnal dyspnea. No orthopnea. No lightheadedness or dizziness. No syncopal episodes. Abdominal: Reports abdominal pain. No nausea, vomiting. No diarrhea. No constipation. No bloody or tarry stools reports loss of appetite. Genitourinary: No dysuria, increased frequency, urgency. No urinary retention. Musculoskeletal: No myalgias. No muscle weakness, no gait dysfunction, no frequent falls. No back pain. No neck pain. Integumentary: No wounds, no lesions. No rash or pruritus. No unusual bruising. No change in hair or nails. Neurologic: No aphasia. No facial droop. No change in mentation. No head injury. No headache. No paralysis. No paresthesia. Psychiatric: No depression. No anxiety. No mood swings. Endocrine: No abnormal blood sugars. No weight change. PAST MEDICAL HISTORY: Mixed hyperlipidemia Major depressive disorder. PAST SURGICAL HISTORY: Bilateral sinus surgery. Last colonoscopy was more than 20 years ago. Vasectomy. SOCIAL HISTORY: Patient denies a history of smoking, no history of drinking, no drug use or abuse, lives with his . FAMILY HISTORY: Father at age 68 from brain aneurysm, he also had a history of congestive heart failure, and grand mal seizure, mother at age of 79 from COVID pneumonia and she had history of obesity and osteoarthritis, patient has 1 brother alive and okay, patient has 2 sisters 56 and 53 healthy, patient has 1 son and 4 daughters no major medical problems. PHYSICAL EXAMINATION: General: 53-year-old male laying down in bed in no apparent distress. HEENT: Head is atraumatic, normocephalic, pupils were equal round reactive to light and recommendation, extraocular muscle movement were intact, sclera nonicteric, conjunctivae were pale, mucous membranes of the mouth are somewhat dry. Neck: Supple, no JVP, normal carotid upstroke bilaterally, no lymphadenopathy. Chest: Decreased breath sounds at the bases, few rhonchi, no expiratory wheezes, no chest wall tenderness, no intercostal retractions. Heart: First heart sound is normal, second heart sound is normal there is no gallop or murmur. Abdomen: Soft, nontender, nondistended, positive bowel sounds. Extremities: There is no edema no calf tenderness DP +2 bilaterally. Neurologic examination: Patient is awake alert and oriented x3 , cranial nerves II-12 appear grossly intact, muscle power were 5 out of 5 in upper extremities and 5 out of 5 in bilateral lower extremities, deep tendon reflexes normal bilaterally. ASSESSMENT AND PLAN: 1. Transient global amnesia that has resolved completely after 10 to [address] scan of the brain was reviewed and did not show evidence of acute abnormalities, CTA of the neck and the brain did not show evidence of acute abnormalities, patient was started on aspirin 325 mg once every day, he has been maintained on atorvastatin 40 mg once every day, lipid panel were obtained, neurology consultation was obtained, check B12 level, folic acid level, sed rate, check TALI, I will follow-up with the patient MRI of the brain with and without griffin, if the MRI is negative patient can be discharged home and follow-up with us as an outpatient. 2. Mixed hyperlipidemia. Continue patient on atorvastatin 40 mg once every day, monitor lipid panel, keep LDL 55-70. 3. Depressive disorder. Continue patient on Wellbutrin XL 300 mg once every day,Sertraline 200 mg po daily monitor the patient symptoms very closely. Patient has been following with counselor on a regular basis. 4. DVT prophylaxis. Lovenox 40 mg subcutaneously every 24 hours. 5. GI prophylaxis. Protonix 40 mg once every day. 6. Observation. 7. Patient is full code. Past Medical History Past Medical History: Hyperlipidemia History of Any Multi-Drug Resistant Organisms: None Reported Past Surgical History: No Surgical Hx Reported Past Psychological History: Depression Past Alcohol Use History: Occasional Past Drug Use History: None Reported Medications and Allergies Home Medications Medication Instructions Recorded Confirmed Type Atorvastatin [Lipitor] 40 mg PO HS 03/02/24 03/02/24 History Cholecalciferol [Vitamin D3 (125 125 mcg PO DAILY 03/02/24 03/02/24 History Mcg = 5000 Iu)] Glucosam/Ander-Msm1/C/Keith/Bosw 1 tab PO DAILY 03/02/24 03/02/24 History [Glucosamine-Chondroitin Tablet] Multivitamins, Thera [Multivitamin 1 tab PO DAILY 03/02/24 03/02/24 History (formulary)] [place]-3/Dha/Epa/Fish Oil [[place]-3 1 cap PO DAILY 03/02/24 03/02/24 History Fish Oil 1,000 mg Sfgl] Quercetin 500 mg PO DAILY 03/02/24 03/02/24 History Sertraline [Zoloft] 200 mg PO HS 03/02/24 03/02/24 History Turmeric Root Extract [Turmeric] 500 mg PO DAILY 03/02/24 03/02/24 History Ubidecarenone [Coenzyme Q10] 200 mg PO DAILY 03/02/24 03/02/24 History Vitamin B Complex 1 cap PO DAILY 03/02/24 03/02/24 History buPROPion XL [Wellbutrin XL] 300 mg PO DAILY 03/02/24 03/02/24 History modafiniL [Provigil] 100 mg PO DAILY PRN 03/02/24 03/02/24 History Allergies Allergy/AdvReac Type Severity Reaction Status Date / Time No Known Allergies Allergy Verified 03/02/24 16:41 Physical Exam Vitals: Vital Signs Temp Pulse Resp BP Pulse Ox 03/02/24 18:10 73 18 98 03/02/24 18:00 70 18 96 03/02/24 17:45 77 18 98 03/02/24 17:30 67 18 119/80 94 L 03/02/24 17:15 78 18 95 03/02/24 17:00 75 18 113/86 94 L 03/02/24 16:44 79 18 122/92 94 L 03/02/24 16:24 98.3 F 82 16 136/87 95 Intake and Output 03/02/24 03/02/24 03/02/24 06:59 14:59 22:59 Other: Weight 95.254 kg Results CBC & Chem 7: 03/03/24 08:48 03/03/24 08:48 Labs: Abnormal Lab Results - Last 24 Hours (Table) 03/02/24 03/02/24 Range/Units 16:57 16:57 PT 9.9 L (10.0-12.5) sec Chloride 110 H (98-107) mmol/L Carbon Dioxide 20 L (22-30) mmol/L Creatine Kinase 227 H (55-170) U/L
[2024-03-03 15:35] LABS: Homocysteine 9.83 UMOL/L (4.00-14.00)
[2024-03-03 15:46] LABS: Erythrocyte Sedimentation Rate 3 mm/Hr (0-20)
[2024-03-03 16:01] LABS: Chol/HDL Ratio 3.79 Ratio; LDL Cholesterol,Calculated 85.6 mg/dL (0.0-131.0)
--- NOTE | 2024-03-03 19:56 | P.PN ---
Subjective Progress Note Date: 03/03/24 HISTORY OF PRESENT ILLNESS: This is a 53-year-old male with a previous medical history significant for mixed hyperlipidemia, major depressive disorder, otherwise healthy has been doing fine patient presented to the emergency department at [facility] yesterday after he developed to have a significant amnestic episode that lasted about 10 to 15 minutes after he was having sex with his , patient denies taking any medication prior to intercourse, patient denies any headache at that time, he denies any blurred vision double vision, he denies any palpitation, he denies any syncopal episode, he denies any numbness in the upper or lower extremities, but his noted that the patient is not himself, she ended up driving the patient to the ER for evaluation, he had a CT scan of the brain followed by CT angiography of the neck and the brain that was negative, patient was started on aspirin 325 mg orally once every day he was admitted to the hospital for further evaluation, MRI of the brain with and without gadolinium was obtained neurology consultation was obtained as well. 03/03: Patient is laying down in bed in no apparent distress, he denies any chest pain, shortness of breath, he has no headache, he has no numbness, he had no episode of amnesia anymore, he was seen earlier by neurology, it was recommended for the patient to go for MRI of the brain with and without griffin, he is scheduled to go for tomorrow morning, he had an EEG done the results still pending at the time of dictation, doubt any seizure activity, but we will monitor for that. Continue patient on full aspirin, continue atorvastatin, monitor the patient very closely patient can be discharged home tomorrow after his MRI is done. REVIEW OF SYSTEMS: Constitutional: No documented fever, no chills, no night sweats. No weight change. No weakness, fatigue or lethargy. No daytime sleepiness. EENT: No headache. No blurred vision or double vision, no loss of vision. No loss of Hearing, no ringing in the ears, no dizziness. No nasal drainage or congestion. No epistaxis. No sore throat. Lungs: No shortness of breath, no cough, no sputum production. No wheezing. Reports dyspnea with activity. Cardiovascular: No chest pain, no lower extremity edema. No palpitations. No paroxysmal nocturnal dyspnea. No orthopnea. No lightheadedness or dizziness. No syncopal episodes. Abdominal: Reports abdominal pain. No nausea, vomiting. No diarrhea. No constipation. No bloody or tarry stools reports loss of appetite. Genitourinary: No dysuria, increased frequency, urgency. No urinary retention. Musculoskeletal: No myalgias. No muscle weakness, no gait dysfunction, no frequent falls. No back pain. No neck pain. Integumentary: No wounds, no lesions. No rash or pruritus. No unusual b ruising. No change in hair or nails. Neurologic: No aphasia. No facial droop. No change in mentation. No head injury. No headache. No paralysis. No paresthesia. Psychiatric: No depression. No anxiety. No mood swings. Endocrine: No abnormal blood sugars. No weight change. PHYSICAL EXAMINATION: General: 53-year-old male laying down in bed in no apparent distress. HEENT: Head is atraumatic, normocephalic, pupils were equal round reactive to light and recommendation, extraocular muscle movement were intact, sclera nonicteric, conjunctivae were pale, mucous membranes of the mouth are somewhat dry. Neck: Supple, no JVP, normal carotid upstroke bilaterally, no lymphadenopathy. Chest: Decreased breath sounds at the bases, few rhonchi, no expiratory wheezes, no chest wall tenderness, no intercostal retractions. Heart: First heart sound is normal, second heart sound is normal there is no gallop or murmur. Abdomen: Soft, nontender, nondistended, positive bowel sounds. Extremities: There is no edema no calf tenderness DP +2 bilaterally. Neurologic examination: Patient is awake alert and oriented x3 , cranial nerves II-12 appear grossly intact, muscle power were 5 out of 5 in upper extremities and 5 out of 5 in bilateral lower extremities, deep tendon reflexes normal bilaterally. ASSESSMENT AND PLAN: 1. Transient global amnesia that has resolved completely after 10 to [address] scan of the brain was reviewed and did not show evidence of acute abnormalities, CTA of the neck and the brain did not show evidence of acute abnormalities, patient was started on aspirin 325 mg once every day, he has been maintained on atorvastatin 40 mg once every day, lipid panel were obtained, neurology consultation was obtained, check B12 level, folic acid level, sed rate, check TALI, I will follow-up with the patient MRI of the brain with and without griffin, if the MRI is negative patient can be discharged home and follow-up with us as an outpatient. 2. Mixed hyperlipidemia. Continue patient on atorvastatin 40 mg once every day, monitor lipid panel, keep LDL 55-70. 3. Depressive disorder. Continue patient on Wellbutrin XL 300 mg once every day,Sertraline 200 mg po daily monitor the patient symptoms very closely. Patient has been following with counselor on a regular basis. 4. DVT prophylaxis. Lovenox 40 mg subcutaneously every 24 hours. 5. GI prophylaxis. Protonix 40 mg once every day. 6. Rule out seizure which I doubt. 7. MRI of the brain tomorrow morning and after that the patient can be discharged home. Objective - Vital Signs Vital signs: Vital Signs Temp 99.2 F 03/03/24 16:21 Pulse 76 03/03/24 16:21 Resp 16 03/03/24 16:21 BP 126/77 03/03/24 16:21 Pulse Ox 97 03/03/24 16:21 FiO2 Intake & Output 03/03/24 03/03/24 03/04/24 06:59 18:59 06:59 Weight 95.254 kg Other: # Voids 3 - Labs CBC & Chem 7: 03/03/24 08:48 03/03/24 08:48 Labs: Abnormal Lab Results - Last 24 Hours (Table) 03/03/24 Range/Units 08:48 Chloride 109 H (98-107) mmol/L Glucose 140 H (74-99) mg/dL HDL Cholesterol 39.00 L (40.00-60.00) mg/dL
--- NOTE | 2024-03-03 23:38 | MR ---
EXAMINATION TYPE: MR brain wo con DATE OF EXAM: 03/03/2024 6:29 PM CLINICAL INDICATION:Male, 53 years old with history of Neuro deficit, acute, stroke suspected; PHH, N euro deficit, acute, stroke suspected COMPARISON: 03/02/2024. TECHNIQUE: Multi planar, multi sequence imaging was performed through the brain including: T1, T2, In version recovery, Diffusion weighted imaging, and gradient echo imaging. No gadolinium was given. FINDINGS: Focus of restricted diffusion within the left parahippocampal gyrus series 303 image 120. T he duran-white junctions, ventricular system, basal cisterns appear unremarkable. Midline structures s how no abnormality. The susceptibility weighted images do not reveal any evidence for micro-hemorrha ge. The bone marrow signal is within normal limits. Paranasal sinuses and mastoid air cells: Mild scattered paranasal sinus disease. Visualized orbits: Orbital contents are intact. 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
[2024-03-04] MEDS: CLOPIDOGREL 75 MG TAB PO SCH (12:48)
--- NOTE | 2024-03-04 16:10 | P.PN ---
Subjective Progress Note Date: 03/04/24 I am following up with the patient and he feels back to baseline. No new neurological issues. Objective - Vital Signs Vital signs: Vital Signs Temp 99.2 F 03/04/24 14:43 Pulse 89 03/04/24 14:43 Resp 17 03/04/24 14:43 BP 125/85 03/04/24 14:43 Pulse Ox 94 L 03/04/24 14:43 FiO2 21 03/04/24 09:27 Intake & Output 03/03/24 03/04/24 03/04/24 18:59 06:59 18:59 Intake Total 960 468 Balance 960 468 Weight 95.254 kg Intake: Oral 960 468 Other: Voiding Method Toilet Toilet # Voids 3 2 3 - Exam GENERAL: The patient is lying in bed and is not in acute distress. NEUROLOGICAL: Higher mental function: The patient is awake, alert, oriented to self, place and time. Patient is following commands. No aphasia and no neglect. Cranial nerves: The pupils are round, equal and reactive to light and accommodation. Visual estevez are full to confrontation throughout. Extraocular movement is intact no nystagmus is noted. Facial sensation is normal to touch throughout. The facial strength is normal throughout. Hearing is normal bilaterally to hand rub. Tongue is midline and moved [id number] without any difficulty. No dysarthria is noted. Shoulder shrug is normal bilaterally. Motor: The strength is 5 over 5 throughout. Normal tone and bulk. Cerebellum: Normal finger to nose heel to simpson bilaterally. Sensation: Sensation is normal to touch throughout. Reflexes (right/left): 2+ Plantars are downgoing bilaterally. Some other workup during this hospital visit consisted of: Is afebrile. Presentation blood pressure is 136/87. CBC with differential is unremarkable Chemistry panel is sodium is 137, calcium 9.6, serum glucose 96, ammonia level is less than 9 BUN and creatinine is within normal limits Lipid panel is triglyceride 117, cholesterol is 148, LDL is 85 and HDL is 39 Vitamin B12 is 792 Serum folate is 19.70 Homocystine is 9.83 Ammonia is less than 9. CT of the head is reported as no acute intracranial process. Personally reviewed the CT and agree with the report. Routine EEG is normal. MRI of the brain is reported as acute/subacute foci of CVA involving the left parahippocampus gyrus. I personally reviewed the MRI and I do agree it is a small foci on the left territory as mentioned in report but diffusion res triction can also happen and seizures as well. - Labs CBC & Chem 7: 03/03/24 08:48 03/03/24 08:48 Labs: Abnormal Lab Results - Last 24 Hours (Table) 03/03/24 Range/Units 08:48 HDL Cholesterol 39.00 L (40.00-60.00) mg/dL Assessment and Plan Assessment: This is a 53-year-old gentleman who presented because of episode of confusion the patient was repeating himself yesterday to his and unable to respond to simple question. He denies any focal weakness, numbness visual disturbance headache. Patient states his father had a history of focal seizure and 50s years old Episode of confusion with repeating himself on MRI reported as acute/subacute foci of CVA involving the left parahippocampus gyrus. I personally reviewed the MRI and I agree there is diffusion restriction in that region but also diffusion restriction can happen procedure. Therefore probable that he had a stroke but I cannot rule out a seizure as well especially with family history of seizure and his episode of confusion. CT head and CT angiography were unremarkable. Routine EEG is normal. Hypercholesteremia Depression Plan: Patient started on aspirin 325 daily in our facility as well as Plavix 75 mg daily. Patient to be on dual antiplatelet and after 21 days stop Plavix but continue aspirin indefinitely. He is on his home dose of Lipitor 40 gram nightly. I ordered a 2D echo stat As stated earlier which probably had a stroke but I cannot rule out a seizure. Recommend consideration of switching Wellbutrin can lower seizure threshold. If possible to modify the medication to something else and will defer that to his primary team versus following up with a psychiatrist as an outpatient and addressing that Consider repeat EEG as outpatient as an outpatient versus long-term EEG. Will defer that workup to his outpatient neurologist. I did not start him on any antiepileptic drugs since he does not have a conclusive diagnosis of seizures. I notified the patient if he does not have an underlying seizure then per the [place] law to avoid driving for 6-month until seizure-free, avoid heights, avoid swimming unassisted or using heavy machinery. At this time it is not confirmed that he had a seizure but I recommend that he follows up with a neurologist as an outpatient for further evaluation within 1 to 2 weeks. Defer the rest of the medical management to primary team The plan discussed with the patient, his who is at bedside and his nurse. If 2D echo is normal then no further neurological workup. Time with Patient: Less than 30
--- NOTE | 2024-03-04 18:31 | P.PN ---
Subjective Progress Note Date: 03/04/24 HISTORY OF PRESENT ILLNESS: This is a 53-year-old male with a previous medical history significant for mixed hyperlipidemia, major depressive disorder, otherwise healthy has been doing fine patient presented to the emergency department at [facility] yesterday after he developed to have a significant amnestic episode that lasted about 10 to 15 minutes after he was having sex with his , patient denies taking any medication prior to intercourse, patient denies any headache at that time, he denies any blurred vision double vision, he denies any palpitation, he denies any syncopal episode, he denies any numbness in the upper or lower extremities, but his noted that the patient is not himself, she ended up driving the patient to the ER for evaluation, he had a CT scan of the brain followed by CT angiography of the neck and the brain that was negative, patient was started on aspirin 325 mg orally once every day he was admitted to the hospital for further evaluation, MRI of the brain with and without gadolinium was obtained neurology consultation was obtained as well. 03/03: Patient is laying down in bed in no apparent distress, he denies any chest pain, shortness of breath, he has no headache, he has no numbness, he had no episode of amnesia anymore, he was seen earlier by neurology, it was recommended for the patient to go for MRI of the brain with and without griffin, he is scheduled to go for tomorrow morning, he had an EEG done the results still pending at the time of dictation, doubt any seizure activity, but we will monitor for that. Continue patient on full aspirin, continue atorvastatin, monitor the patient very closely patient can be discharged home tomorrow after his MRI is done. 03/04: Patient is lying down in bed in no apparent distress, he has not had any amnestic episode, his was at the bedside, patient did have an MRI of the brain with and without gadolinium that showed evidence of acute/subacute foci of left parahypocampal gyrus, patient was placed on Plavix 75 mg for the next 21 days, then he will be switched to oral aspirin 81 mg once a day, continue Lipitor 40 mg once every day his LDL not at goal, will add Zetia 10 mg once ever y day for LDL less than 55, monitor the patient very closely, echocardiogram was ordered by neurology is still pending at the time of dictation most likely the patient will be spending the night in the hospital till after the echocardiogram is done. REVIEW OF SYSTEMS: Constitutional: No documented fever, no chills, no night sweats. No weight change. No weakness, fatigue or lethargy. No daytime sleepiness. EENT: No headache. No blurred vision or double vision, no loss of vision. No loss of Hearing, no ringing in the ears, no dizziness. No nasal drainage or congestion. No epistaxis. No sore throat. Lungs: No shortness of breath, no cough, no sputum production. No wheezing. Reports dyspnea with activity. Cardiovascular: No chest pain, no lower extremity edema. No palpitations. No paroxysmal nocturnal dyspnea. No orthopnea. No lightheadedness or dizziness. No syncopal episodes. Abdominal: Reports abdominal pain. No nausea, vomiting. No diarrhea. No constipation. No bloody or tarry stools reports loss of appetite. Genitourinary: No dysuria, increased frequency, urgency. No urinary retention. Musculoskeletal: No myalgias. No muscle weakness, no gait dysfunction, no frequent falls. No back pain. No neck pain. Integumentary: No wounds, no lesions. No rash or pruritus. No unusual bruising. No change in hair or nails. Neurologic: No aphasia. No facial droop. No change in mentation. No head injury. No headache. No paralysis. No paresthesia. Psychiatric: No depression. No anxiety. No mood swings. Endocrine: No abnormal blood sugars. No weight change. PHYSICAL EXAMINATION: General: 53-year-old male laying down in bed in no apparent distress. HEENT: Head is atraumatic, normocephalic, pupils were equal round reactive to light and recommendation, extraocular muscle movement were intact, sclera nonicteric, conjunctivae were pale, mucous membranes of the mouth are somewhat dry. Neck: Supple, no JVP, normal carotid upstroke bilaterally, no lymphadenopathy. Chest: Decreased breath sounds at the bases, few rhonchi, no expiratory wheezes, no chest wall tenderness, no intercostal retractions. Heart: First heart sound is normal, second heart sound is normal there is no gallop or murmur. Abdomen: Soft, nontender, nondistended, positive bowel sounds. Extremities: There is no edema no calf tenderness DP +2 bilaterally. Neurologic examination: Patient is awake alert and oriented x3 , cranial nerves II-12 appear grossly intact, muscle power were 5 out of 5 in upper extremities and 5 out of 5 in bilateral lower extremities, deep tendon reflexes normal bilaterally. ASSESSMENT AND PLAN: 1. 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 Continue Plavix 75 mg once every day, continue atorvastatin 40 mg once every day, add Zetia 10 mg once every day for optimization of LDL, monitor the patient very closely, await for the echocardiogram to be done and the patient can be discharged home after that. 2. Mixed hyperlipidemia. Continue patient on atorvastatin 40 mg once every day, I will add Zetia 10 mg once every day to keep his LDL between 55 and 70. 3. Depressive disorder. Continue patient on Wellbutrin XL 300 mg once every day,Sertraline 200 mg po daily monitor the patient symptoms very closely. Patient has been following with counselor on a regular basis. 4. Transient global amnesia. 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 Continue patient on Plavix 75 mg once every day, atorvastatin 40 mg once every day, Zetia 10 mg once every day, echocardiogram will be done . 5. DVT prophylaxis. Lovenox 40 mg subcutaneously every 24 hours. 6. GI prophylaxis. Protonix 40 mg once every day. 7. Rule out seizure which I doubt. EEG did not show evidence of acute seizure. 8. Hopefully home after echocardiogram is done. Objective - Vital Signs Vital signs: Vital Signs Temp 99.2 F 03/04/24 14:43 Pulse 89 03/04/24 14:43 Resp 17 03/04/24 14:43 BP 125/85 03/04/24 14:43 Pulse Ox 94 L 03/04/24 14:43 FiO2 21 03/04/24 09:27 Intake & Output 03/03/24 03/04/24 03/04/24 18:59 06:59 18:59 Intake Total 960 468 Balance 960 468 Weight 95.254 kg Intake: Oral 960 468 Other: Voiding Method Toilet Toilet # Voids 3 2 3 - Labs CBC & Chem 7: 03/03/24 08:48 03/03/24 08:48
--- NOTE | 2024-03-05 10:39 | CA ---
Transthoracic Echo Report Name: Ahmet Alfonso Age: 53 Gender: M : 1970 Exam Date: 03/04/2024 14:20 Exam Location: [facility] Ht (in): 68 Wt (lb): 210 Ordering Physician: Rasheed Macias MD Attending/Referring Phys: Warehousing Technician Ashlyn Murphy RDCS Procedure CPT: Indications: stroke Cardiac Hx: Technical Quality: Fair Contrast 1: Agitated Saline Total Dose (mL): 10 Contrast 2: Total Dose (mL): MEASUREMENTS (Male / Female) Normal Values 2D ECHO LV Diastolic Diameter PLAX 4.9 cm 4.2 - 5.9 / 3.9 - 5.3 cm LV Systolic Diameter PLAX 3.0 cm IVS Diastolic Thickness 0.8 cm 0.6 - 1.0 / 0.6 - 0.9 cm LVPW Diastolic Thickness 0.9 cm 0.6 - 1.0 / 0.6 - 0.9 cm LV Relative Wall Thickness 0.3 RV Internal Dim ED PLAX 3.1 cm LVOT Diameter 2.1 cm LV Diastolic Volume MOD BP 95.6 cm??? 67 - 155 / 56 - 104 cm??? LV Systolic Volume MOD BP 40.1 cm??? 22 - 58 / 19 - 49 cm??? LV Ejection Fraction MOD BP 58.1 % >= 55 % LV Cardiac Index MOD BP 2099.5 cm???/min???m??? LV Diastolic Volume MOD 4C 109.8 cm??? LV Systolic Volume MOD 4C 45.2 cm??? LV Ejection Fraction MOD 4C 58.8 % LV Cardiac Index MOD 4C 2444.1 cm???/min???m??? LV Diastolic Length 4C 8.4 cm LV Systolic Length 4C 7.0 cm LV Diastolic Volume MOD 2C 80.4 cm??? LV Systolic Volume MOD 2C 34.2 cm??? LV Ejection Fraction MOD 2C 57.5 % LV Cardiac Index MOD 2C 1747.8 cm???/min???m??? LV Diastolic Length 2C 8.1 cm LV Systolic Length 2C 6.7 cm LA Volume 44.4 cm??? 18 - 58 / 22 - 52 cm??? LA Volume Index 20.5 cm???/m??? 16 - 28 cm???/m??? Ascending Aorta Diameter 3.3 cm DOPPLER AV Peak Velocity 136.5 cm/s AV Peak Gradient 7.4 mmHg AV Mean Velocity 93.5 cm/s AV Mean Gradient 4.0 mmHg AV Velocity Time Integral 24.4 cm LVOT Peak Velocity 107.6 cm/s LVOT Peak Gradient 4.6 mmHg LVOT Velocity Time Integral 18.5 cm LVOT Stroke Volume 65.7 cm??? LVOT Stroke Volume Index 31.5 ml/m??? LVOT Cardiac Index 2482.9 cm???/min???m??? AV Area Cont Eq vti 2.7 cm??? AV Area Cont Eq pk 2.8 cm??? MV Area PHT 3.8 cm??? Mitral E Point Velocity 56.4 cm/s Mitral A Point Velocity 68.0 cm/s Mitral E to A Ratio 0.8 MV Deceleration Time 198.7 ms PV Peak Velocity 82.2 cm/s PV Peak Gradient 2.7 mmHg FINDINGS Left Ventricle Left ventricular ejection fraction is estimated at 55-60 %. Left ventricular cavity size normal. Left ventricular wall thickness normal. No obvious regional wall motion abnormalities. Right Ventricle Normal right ventricular size and function. Unable to estimate the right ventricular systolic pressure. Right Atrium Normal right atrial size. Left Atrium Normal left atrial size. Mitral Valve Structurally normal mitral valve. No evidence for mitral valve prolapse. No mitral stenosis. Trace mitral regurgitation. Aortic Valve Trileaflet aortic valve. No aortic valve stenosis or regurgitation. Tricuspid Valve Structurally normal tricuspid valve. No tricuspid stenosis. Trace tricuspid regurgitation. Pulmonic Valve Structurally normal pulmonic valve. No pulmonic stenosis. Trace pulmonic regurgitation. Pericardium No pericardial effusion. Aorta Normal size aortic root and proximal ascending aorta. CONCLUSIONS Normal LV systolic function Negative bubble study. Previewed by: Dr. Jeff Green MD (Electronically Signed) Final Date: 05 Mar 2024 10:39
--- NOTE | 2024-03-05 11:35 | P.PN ---
Subjective Progress Note Date: 03/05/24 The patient is accompanied with his and he feels he is doing well. No further episodes of confusion or repeating himself. No new neurological issues. Objective - Vital Signs Vital signs: Vital Signs Temp 97.8 F 03/05/24 07:25 Pulse 67 03/05/24 07:25 Resp 16 03/05/24 07:25 BP 122/79 03/05/24 07:25 Pulse Ox 100 03/05/24 07:25 FiO2 21 03/04/24 09:27 Intake & Output 03/04/24 03/05/24 03/05/24 18:59 06:59 18:59 Intake Total 586 480 236 Balance 586 480 236 Intake: Oral 586 480 236 Other: Voiding Method Toilet Toilet # Voids 3 1 - Exam GENERAL: The patient is lying in bed and is not in acute distress. NEUROLOGICAL: Higher mental function: The patient is awake, alert, oriented to self, place and time. Patient is following commands. No aphasia and no neglect. Cranial nerves: The pupils are round, equal and reactive to light and accommodation. Visual estevez are full to confrontation throughout. Extraocular movement is intact no nystagmus is noted. Facial sensation is normal to touch throughout. The facial strength is normal throughout. Hearing is normal bilaterally to hand rub. Tongue is midline and moved [id number] without any difficulty. No dysarthria is noted. Shoulder shrug is normal bilaterally. Motor: The strength is 5 over 5 throughout. Normal tone and bulk. Cerebellum: Normal finger to nose heel to simpson bilaterally. Sensation: Sensation is normal to touch throughout. Reflexes (right/left): 2+ Plantars are downgoing bilaterally. Some other workup during this hospital visit consisted of: Is afebrile. Presentation blood pressure is 136/87. CBC with differential is unremarkable Chemistry panel is sodium is 137, calcium 9.6, serum glucose 96, ammonia level is less than 9 BUN and creatinine is within normal limits Lipid panel is triglyceride 117, cholesterol is 148, LDL is 85 and HDL is 39 Vitamin B12 is 792 Serum folate is 19.70 Homocystine is 9.83 Ammonia is less than 9. CT of the head is reported as no acute intracranial process. Personally reviewed the CT and agree with the report. Routine EEG is normal. MRI of the brain is reported as acute/subacute foci of CVA involving the left p arahippocampus gyrus. I personally reviewed the MRI and I do agree it is a small foci on the left territory as mentioned in report but diffusion restriction can also happen and seizures as well. - Labs CBC & Chem 7: 03/03/24 08:48 03/03/24 08:48 Assessment and Plan Assessment: This is a 53-year-old gentleman who presented because of episode of confusion the patient was repeating himself yesterday to his and unable to respond to simple question. He denies any focal weakness, numbness visual disturbance h eadache. Patient states his father had a history of focal seizure and 50s years old Episode of confusion with repeating himself on MRI reported as acute/subacute foci of CVA involving the left parahippocampus gyrus. I personally reviewed the MRI and I agree there is diffusion restriction in that region but also diffusion restriction can happen procedure. Therefore probable that he had a stroke but I cannot rule out a seizure as well especially with family history of seizure and his episode of confusion. CT head and CT angiography were unremarkable. Routine EEG is normal. Hypercholesteremia Depression Plan: Patient started on aspirin 325 daily in our facility as well as Plavix 75 mg daily. Patient to be on dual antiplatelet and after 21 days stop Plavix but c ontinue aspirin indefinitely. He is on his home dose of Lipitor 40 gram nightly. I ordered a 2D echo stat yesterday and pending report. As stated earlier which probably had a stroke but I cannot rule out a seizure. Recommend consideration of switching Wellbutrin can lower seizure threshold. If possible to modify the medication to something else and will defer that to his primary team versus following up with a psychiatrist as an outpatient and addressing that Consider repeat EEG as outpatient as an outpatient versus long-term EEG. Will defer that workup to his outpatient neurologist. I did not start him on any antiepileptic drugs since he does not have a conclusive diagnosis of seizures. I notified the patient if he does not have an underlying seizure then per the [place] law to avoid driving for 6-month until seizure-free, avoid heights, avoid swimming unassisted or using heavy machinery. At this time it is not confirmed that he had a seizure but I recommend that he follows up with a neurologist as an outpatient for further evaluation within 1 to 2 weeks. Defer the rest of the medical management to primary team The plan discussed with the patient, his who is at bedside and his nurse. If 2D echo is normal then no further neurological workup. Time with Patient: Less than 30
--- NOTE | 2024-03-05 14:17 | P.DS ---
Providers Date of admission: 03/05/24 07:33 Expected date of discharge: 03/05/24 Attending physician: Amberly Gamble Consults: 03/02/24 18:47 Consult Physician Routine Consulting Provider: Rasheed Macias Consult Reason/Comments: Confusion, amnesia Do you want consulting provider notified?: Already Contacted Primary care physician: Amberly Gamble [facility] Course: HISTORY OF PRESENT ILLNESS: This is a 53-year-old male with a previous medical history significant for mixed hyperlipidemia, major depressive disorder, otherwise healthy has been doing fine patient presented to the emergency department at [facility] yesterday after he developed to have a significant amnestic episode that lasted about 10 to 15 minutes after he was having sex with his , patient denies taking any medication prior to intercourse, patient denies any headache at that time, he denies any blurred vision double vision, he denies any palpitation, he denies any syncopal episode, he denies any numbness in the upper or lower extremities, but his noted that the patient is not himself, she ended up driving the patient to the ER for evaluation, he had a CT scan of the brain followed by CT angiography of the neck and the brain that was negative, patient was started on aspirin 325 mg orally once every day he was admitted to the hospital for further evaluation, MRI of the brain with and without gadolinium was obtained neurology consultation was obtained as well. 03/03: Patient is laying down in bed in no apparent distress, he denies any chest pain, shortness of breath, he has no headache, he has no numbness, he had no episode of amnesia anymore, he was seen earlier by neurology, it was recommended for the patient to go for MRI of the brain with and without griffin, he is scheduled to go for tomorrow morning, he had an EEG done the results still pending at the time of dictation, doubt any seizure activity, but we will monitor for that. Continue patient on full aspirin, continue atorvastatin, monitor the patient very closely patient can be discharged home tomorrow after his MRI is done. 03/04: Patient is lying down in bed in no apparent distress, he has not had any amnestic episode, his was at the bedside, patient did have an MRI of the brain with and without gadolinium that showed evidence of acute/subacute foci of left parahypocampal gyrus, patient was placed on Plavix 75 mg for the next 21 days, then he will be switched to oral aspirin 81 mg once a day, continue Lipitor 40 mg once every day his LDL not at goal, will add Zetia 10 mg once every day for LDL less than 55, monitor the patient very closely, echocardiogram was ordered by neurology is still pending at the time of dictation most likely the patient will be spending the night in the hospital till after the echocardiogram is done. 03/05: Patient is lying down in bed in no apparent distress, he denies any chest pain, or any shortness of breath, he underwent echocardiogram that showed normal ejection fraction, with no evidence of any PFO's or any shunts in the anterior atrium, patient bubble study was negative, therefore the patient will stay on aspirin 325 mg once every day, Plavix 75 mg once every day, for 21 days, and after that he will stop the Plavix and stay on aspirin indefinitely, I added Zetia 10 mg once every day for optimization of LDL, keep his LDL less than 55. Patient can be discharged home and follow-up with me as an outpatient in 1 week. Discharge diagnoses: 1. 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 Continue Plavix 75 mg once every day, continue atorvastatin 40 mg once every day, add Zetia 10 mg once every day for optimization of LDL, monitor the patient very closely, await for the echocardiogram to be done and the patient can be discharged home after that. 2. Mixed hyperlipidemia. Continue patient on atorvastatin 40 mg once every day, I will add Zetia 10 mg once every day to keep his LDL between 55 and 70. 3. Depressive disorder. Continue patient on Wellbutrin XL 300 mg once every day,Sertraline 200 mg po daily monitor the patient symptoms very closely. Patient has been following with counselor on a regular basis. 4. Transient global amnesia. 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 Continue patient on Plavix 75 mg once every day, atorvastatin 40 mg once every day, Zetia 10 mg once every day, echocardiogram will be done . 5. DVT prophylaxis. Lovenox 40 mg subcutaneously every 24 hours. 6. GI prophylaxis. Protonix 40 mg once every day. 7. Rule out seizure which I doubt. EEG did not show evidence of acute seizure. Patient Condition at Discharge: Stable Plan - Discharge Summary New Discharge Prescriptions: No Action Ubidecarenone [Coenzyme Q10] 200 mg PO DAILY Glucosam/Ander-Msm1/C/Keith/Bosw [Glucosamine-Chondroitin Tablet] 1 tab PO DAILY Vitamin B Complex 1 cap PO DAILY Multivitamins, Thera [Multivitamin (formulary)] 1 tab PO DAILY Cholecalciferol [Vitamin D3 (125 Mcg = 5000 Iu)] 125 mcg PO DAILY Sertraline [Zoloft] 200 mg PO HS [place]-3/Dha/Epa/Fish Oil [[place]-3 Fish Oil 1,000 mg Sfgl] 1 cap PO DAILY Atorvastatin [Lipitor] 40 mg PO HS Quercetin 500 mg PO DAILY Turmeric Root Extract [Turmeric] 500 mg PO DAILY modafiniL [Provigil] 100 mg PO DAILY PRN PRN Reason: DEPRESSION buPROPion XL [Wellbutrin XL] 300 mg PO DAILY Discharge Medication List Atorvastatin [Lipitor] 40 mg PO HS 03/02/24 [History] Cholecalciferol [Vitamin D3 (125 Mcg = 5000 Iu)] 125 mcg PO DAILY 03/02/24 [History] Glucosam/Ander-Msm1/C/Keith/Bosw [Glucosamine-Chondroitin Tablet] 1 tab PO DAILY 03/02/24 [History] Multivitamins, Thera [Multivitamin (formulary)] 1 tab PO DAILY 03/02/24 [History] [place]-3/Dha/Epa/Fish Oil [[place]-3 Fish Oil 1,000 mg Sfgl] 1 cap PO DAILY 03/02/24 [History] Quercetin 500 mg PO DAILY 03/02/24 [History] Sertraline [Zoloft] 200 mg PO HS 03/02/24 [History] Turmeric Root Extract [Turmeric] 500 mg PO DAILY 03/02/24 [History] Ubidecarenone [Coenzyme Q10] 200 mg PO DAILY 03/02/24 [History] Vitamin B Complex 1 cap PO DAILY 03/02/24 [History] buPROPion XL [Wellbutrin XL] 300 mg PO DAILY 03/02/24 [History] modafiniL [Provigil] 100 mg PO DAILY PRN 03/02/24 [History] Follow up Appointment(s)/Referral(s): Amberly Gamble MD [Primary Care Provider] - 1-2 days
[2024-03-05 15:08] VITALS: BP 144/87; PULSE 72; RESP 15; TEMP 98.1
[2024-03-06] MEDS ORDERED: EZETIMIBE 10 MG TAB PO SCH (09:00)
== END 2024-03-05 16:31 | disposition home or self-care (01) | DRG 66 ==
LOC: EC 16:20 → 6NMEDSUR 18:48 → OBSVTOIN 03-05 07:33
PROVIDERS: ADMIT Internal Medicine; ATTEND Internal Medicine
DX: I63.89 Other cerebral infarction (principal); F32.9 Major depressive disorder, single episode, unspecified; F32.A Depression, unspecified; G45.4 Transient global amnesia; E78.2 Mixed hyperlipidemia; R29.700 NIHSS score 0; Z79.899 Other long term (current) drug therapy; Z79.02 Long term (current) use of antithrombotics/antiplatelets; Z82.0 Family history of epilepsy and other diseases of the nervous system; Z82.49 Family history of ischemic heart disease and other diseases of the circulatory system
CPT/HCPCS: 36415; 70450; 70496; 70498; 70551; 80053; 80061; 82140; 82550; 82607; 82746; 83090; 84484; 85025; 85610; 85652; 85730; 86038; 93005; 93306; 94760; 95816; 96360; 99285

== ENCOUNTER → 2025-01-19 | Outpatient (CLI) | payer BC ==
--- NOTE | 2025-01-19 11:02 | NM ---
EXAMINATION TYPE: NM stress cardiolite complete DATE OF EXAM: 01/19/2025 COMPARISON: NONE CLINICAL INDICATION: Male, 54 years old with history of I25.2 old CA; abnormal EKG. History of hyperc holesterolemia. TECHNIQUE: After the intravenous administration of 9.8 mCi Tc 99m Sestamibi - Rest images obtained 4 5 minutes post injection. The patient exercised using a CHANG protocol and 1 minute prior to peak e xercise was injected with 25.0 mCi Tc 99m Sestamibi - Stress images obtained 10 minutes post injectio n. FINDINGS: Targeted heart rate was achieved during performance of the study. Review of stress and rest SPECT octavia ges demonstrates no distinct perfusion abnormality. Gated analysis shows normal wall motion with an estimated left ventricular ejection fraction of 66 %. IMPRESSION: No scintigraphic evidence for reversible ischemia [facility], , 01/19/2025 10:59 AM
--- NOTE | 2025-01-19 11:05 | CA ---
Exercise Nuclear Stress Test Report Name: Ahmet Alfonso Exam Date: 01/19/2025 10:01 Exam Location: [place] Ht (in): 68 Wt (lb): 206 BSA: 2.07 Ordering Phys: Amberly Gamble MD Referring Phys: Amberly Gamble MD Technologist: DAYNE Age: 54 Gender: M : 1970 Procedure CPT: Indications: I25.2 Old ID ICD-10 Codes: Patient History: Abnormal EKG Medications: Meds past 24 hrs: Pretest Chest Pain: STRESS TEST Noe Protocol Exercise Duration (min:sec): 10:[address] Depressions (mm): Angina Score: Mckenna Score: Resting HR (bpm): 75 Peak HR (bpm): 161 Resting BP (mmHg): 112 / 80 Peak BP (mmHg): 175 / 76 MPHR: 167 Target HR: 142 % MPHR: 96 METS: 12.1 Total Dose: Peak Dose: Atropine: Double Product: 50355 BP Response: Stress Termination: TARGET HR REACHED/MAX EXERTION Stress Symptoms: NO SYMPTOMS Stress Summary: ECG ANALYSIS Resting ECG: Normal sinus rhythm with poor R wave progression Stress ECG: Patient exercised on Noe protocol for 10 minutes achieving 85% of predicted maximal heart rate without chest pain or diagnostic ST segment depression CONCLUSIONS Good exercise tolerance Negative stress test by EKG criteria Dr. Lobo Maldonado MD (Electronically Signed) Final Date: 19 January 2025 11:04
== END | disposition home or self-care (01) ==
LOC: RADNMMAIN 08:33
PROVIDERS: ATTEND Internal Medicine
DX: I25.2 Old myocardial infarction (principal); R94.31 Abnormal electrocardiogram [ECG] [EKG]
CPT/HCPCS: 93017; 78452; A9500